=== PATIENT | male | born 1955 | race Caucasian/White ===

== ENCOUNTER 2022-06-04 03:38 | Inpatient (IN) | payer OTHER ==
[2022-06-04] MEDS ORDERED: Acetaminophen 325 MG TAB PO PRN (09:29)
[2022-06-04] MEDS ORDERED: Enoxaparin Sodium 40 MG/0.4 ML SYRINGE SC SCH (09:30)
[2022-06-04] MEDS ORDERED: Dextrose 50% Abboject 50 ML SYRINGE SLOW IVP PRN ×2 (09:46→17:52)
[2022-06-04] MEDS ORDERED: Dextrose 5% in Water 1,000 ML IV PRN ×2 (09:46→17:52)
[2022-06-04] MEDS ORDERED: HumaLOG 300 UNITS/3 ML VIAL SC PRN (09:46)
[2022-06-04] MEDS ORDERED: Magnesium 2 GM/50 ML(in water) 2 GM in Premix Bag 1 BAG IVPB SCH (10:45)
[2022-06-04] MEDS: methylPREDNISolone Sod Succ 40 MG VIAL IVP SCH ×2 (11:16→17:15)
[2022-06-04] MEDS: HumaLOG 300 UNITS/3 ML VIAL SC PRN ×3 (12:04→21:21)
[2022-06-04] MEDS: Cepastat Lozenges 1 LOZ PO PRN (15:12)
[2022-06-04] MEDS: Mometasone/Formoterol 200/5 60 PUFF INH SCH (18:21)
[2022-06-04 18:33] LABS: #Lymphocytes 0.6 thou/uL (1.20-3.40); #Monocytes 0.4 thou/uL (0.11-0.59); #Neutrophils 7.1 thou/uL (1.40-6.50); %Eosinophils 0.1 % (0.0-10.0); %Lymphocytes 7.4 % (21.0-51.0); %Monocytes 4.6 % (0.0-10.0); %Neutrophils 87.8 % (42.0-75.0); Hemoglobin 14.1 g/dL (14.0-18.0); Mean Corpuscular HGB CONC 33.8 g/dL (32.0-36.0); Mean Corpuscular Hemoglobin 34.9 pg (27.0-31.0); Mean Platelet Volume 7.2 fL (7.4-10.4); Platelet Count 184 thou/uL (130-400); RBC Distribution Width 12.1 % (11.5-14.5); Red Blood Cell (RBC) Count 4.04 mill/uL (4.70-6.10)
[2022-06-04 18:44] LABS: Hemoglobin A1c 6.8 % (4.0-6.0)
[2022-06-04 18:49] LABS: Anion Gap 15 mmol/L (10-20); BUN (Urea Nitrogen) 17 mg/dL (8.4-25.7); Calc. Creatinine Clearance 116 mL/min (70-130); Calcium 9.3 mg/dL (7.8-10.44); Carbon Dioxide 21 mmol/L (23-31); Chloride 106 mmol/L (98-107); Estimated GFR 92; Glucose 190 mg/dL (80-115); Potassium 4.5 mmol/L (3.5-5.1); Sodium 137 mmol/L (136-145)
[2022-06-04] MEDS: Benzonatate 100 MG CAP PO PRN (21:19)
[2022-06-05] MEDS: methylPREDNISolone Sod Succ 40 MG VIAL IVP SCH ×3 (01:19→11:39)
[2022-06-05] MEDS: Ibuprofen 200 MG TAB PO PRN ×2 (05:26→20:36)
[2022-06-05] MEDS: Benzonatate 100 MG CAP PO PRN ×3 (06:19→20:36)
[2022-06-05] MEDS: HumaLOG 300 UNITS/3 ML VIAL SC PRN ×4 (06:23→20:27)
[2022-06-05] MEDS: Mometasone/Formoterol 200/5 60 PUFF INH SCH ×2 (06:48→19:00)
[2022-06-05 08:49] VITALS: TEMP 98.1
[2022-06-05] MEDS ORDERED: Enoxaparin Sodium 40 MG/0.4 ML SYRINGE SC SCH (09:00)
[2022-06-05] MEDS: guaiFENesin ER 600 MG TAB PO SCH ×2 (09:19→20:26)
[2022-06-05 12:10] VITALS: BMI 30.6
[2022-06-05] MEDS ORDERED: hydrALAZINE 25 MG TAB PO PRN (12:17)
[2022-06-05] MEDS: Cepastat Lozenges 1 LOZ PO PRN ×3 (13:29→21:49)
[2022-06-05] MEDS: predniSONE 20 MG TAB PO SCH (18:03)
[2022-06-05] MEDS: Famotidine 20 MG TAB PO SCH (20:25)
[2022-06-05] MEDS ORDERED: Non-Formulary Item 1 EACH (Rosuvastatin Calcium [Crestor] 40 MG Tablet) PO SCH ×2 (21:00)
[2022-06-05] MEDS ORDERED: Rosuvastatin 20 MG TAB PO SCH (21:00)
[2022-06-06 05:14] LABS: #Lymphocytes 0.9 thou/uL (1.20-3.40); #Monocytes 0.9 thou/uL (0.11-0.59); #Neutrophils 6.9 thou/uL (1.40-6.50); %Basophils 0.1 % (0.0-1.0); %Eosinophils 0.1 % (0.0-10.0); %Lymphocytes 10.1 % (21.0-51.0); %Monocytes 10.7 % (0.0-10.0); %Neutrophils 78.9 % (42.0-75.0); Hemoglobin 12.4 g/dL (14.0-18.0); Mean Corpuscular HGB CONC 33.4 g/dL (32.0-36.0); Mean Corpuscular Hemoglobin 34.5 pg (27.0-31.0); Mean Platelet Volume 7.5 fL (7.4-10.4); Platelet Count 175 thou/uL (130-400); RBC Distribution Width 12.2 % (11.5-14.5); Red Blood Cell (RBC) Count 3.61 mill/uL (4.70-6.10); White Blood Cell (WBC) Count 8.8 thou/uL (4.8-10.8)
[2022-06-06] MEDS: Cepastat Lozenges 1 LOZ PO PRN ×2 (05:18→09:31)
[2022-06-06] MEDS: HumaLOG 300 UNITS/3 ML VIAL SC PRN (05:19)
[2022-06-06] MEDS: Ibuprofen 200 MG TAB PO PRN (05:25)
[2022-06-06] MEDS ORDERED: Ondansetron PF 4 MG/2 ML Vial IVP PRN (05:26)
[2022-06-06 05:56] LABS: Anion Gap 9 mmol/L (10-20); BUN (Urea Nitrogen) 18 mg/dL (8.4-25.7); Calc. Creatinine Clearance 105 mL/min (70-130); Calcium 8.5 mg/dL (7.8-10.44); Carbon Dioxide 25 mmol/L (23-31); Chloride 106 mmol/L (98-107); Estimated GFR 81; Glucose 240 mg/dL (80-115); Potassium 4.4 mmol/L (3.5-5.1); Sodium 136 mmol/L (136-145)
[2022-06-06] MEDS: Mometasone/Formoterol 200/5 60 PUFF INH SCH (07:04)
[2022-06-06] MEDS ORDERED: glipiZIDE 5 MG TAB PO SCH (08:30)
[2022-06-06] MEDS ORDERED: Multivit, Therapeutic 1 TAB PO SCH (09:00)
[2022-06-06] MEDS ORDERED: Folic Acid 1 MG TAB PO SCH (09:00)
[2022-06-06] MEDS ORDERED: Thiamine 100 MG TAB PO SCH (09:00)
[2022-06-06] MEDS: Famotidine 20 MG TAB PO SCH (09:15)
[2022-06-06] MEDS: predniSONE 20 MG TAB PO SCH (09:15)
[2022-06-06] MEDS: guaiFENesin ER 600 MG TAB PO SCH (09:16)
[2022-06-06] MEDS: Benzonatate 100 MG CAP PO PRN (09:31)
[2022-06-07 02:53] VITALS: BP 148/72
== END 2022-06-06 13:20 | disposition home or self-care (01) | DRG 192 ==
LOC: T4-B 07:22
PROVIDERS: ADMIT Internal Medicine; ATTEND Internal Medicine
DX: J44.1 Chronic obstructive pulmonary disease with (acute) exacerbation (principal); R91.1 Solitary pulmonary nodule; I12.9 Hypertensive chronic kidney disease with stage 1 through stage 4 chronic kidney disease, or unspecified chronic kidney disease; E11.22 Type 2 diabetes mellitus with diabetic chronic kidney disease; N18.2 Chronic kidney disease, stage 2 (mild); E78.5 Hyperlipidemia, unspecified; E66.9 Obesity, unspecified; F10.10 Alcohol abuse, uncomplicated; D63.1 Anemia in chronic kidney disease; Z79.899 Other long term (current) drug therapy; Z79.84 Long term (current) use of oral hypoglycemic drugs; Z79.52 Long term (current) use of systemic steroids; Z91.013 Allergy to seafood; Z68.30 Body mass index [BMI] 30.0-30.9, adult
CPT/HCPCS: 36415; 36416; 80048; 83036; 85025; 87070; 87205; 94640; J1650; J1815; J1956; J2405; J2920; J3475; J7512; J7620